=== PATIENT | female | born 1985 | race Caucasian/White ===

== ENCOUNTER 2019-11-23 15:41 | Outpatient (CLI) | payer OTHER ==
[2019-11-23] VITALS (7 sets, daily range): BP systolic 108–120; BP diastolic 58–68
[2019-11-23] MEDS ORDERED: BETAMETHASONE SOLUSPAN 6MG/ML 5ML VIAL (J0702 PER 3MG) As Ordered ONE (15:53)
[2019-11-23] MEDS ORDERED: MAGNESIUM SULFATE 4% INJ 20GM/500ML (40MG/ML) As Ordered ONE (15:53)
[2019-11-23] MEDS ORDERED: PENICILLIN G POTASSIUM 5 MU VIAL As Ordered ONE (15:53)
[2019-11-23] MEDS ORDERED: CETI10CA2 PO (16:04)
[2019-11-23] MEDS ORDERED: PRENTAB9 PO (16:04)
[2019-11-23] MEDS ORDERED: ACET650T15 PO (16:04)
[2019-11-23 16:21] LABS: BASO # 0.1 10^3/uL (0.0-0.2); BASO % 0.3 % (0.0-1.0); EOS # 0.1 10^3/uL (0.0-0.5); EOS % 0.4 % (0.0-3.0); HEMATOCRIT 44.3 % (36.0-47.0); HEMOGLOBIN 15.3 g/dl (12.0-15.5); LYMPH # 1.9 10^3/uL (1.5-5.0); LYMPH % 11.2 % (24.0-44.0); MEAN CORPUSCULAR HEMOGLOBIN 31.9 pg (27.0-33.0); MEAN CORPUSCULAR HGB CONC 34.5 g/dl (32.0-36.5); MEAN CORPUSCULAR VOLUME 92.3 fl (80.0-96.0); MONO # 0.6 10^3/uL (0.0-0.8); MONO % 3.6 % (0.0-5.0); NEUTROPHILS # 14.2 10^3/uL (1.5-8.5); NEUTROPHILS % 83.6 % (36.0-66.0); PLATELET COUNT, AUTOMATED 378 10^3/uL (150-450)
--- NOTE | 2019-11-23 16:42 | IPNPDOC ---
Obstetrical Progress Note Date of Service Nov 23, 2019 Subjective 34yo at 25+0wks by LMP of [id number] c/w 11w1d U/S on [id number] presented to OB clinic for c/o pelvic pressure and pinkish vaginal discharge that started last night and had progressed throughout the day to now bright red streaks in mucus when wiping after using the bathroom. She reports intermittent cramping pelvic pain stating her belly feels tight. Denies LOF or DFM. Last intercourse within 48hrs. She reports an uncomplicated course thus far. PMHx: GERD PSHx: Cervical myomectomy w/ D&C , T&A, [place] teeth ALL: NKDA Meds: PNV, zyrtec SHx: denies tobacco, ETOH, illicit drugs, reports feeling safe in the home FMHx: Pgreat aunts x2 - muscular dystrophy M: endometriosis, diverticulosis MGM: lung cancer, CAD MGF: gastric cancer, CAD, CHF, skin cancer [employer] Hx: regular menses monthly, no h/o STIs, no h/o abnml pap with last pap normal Objective BP: 125/7 HR: 83 Resp: 20 T: 99.4 Ht: 63 inches Weight: 132.8lbs NST appropriate for gestational age [place]: uterine irritability with irregular ctx's (resolved after starting Magnesium therapy) Assessment Heart Rate (FHR): 150 Variability: Moderate Accelerations: Positive Decelerations: None Heart Rate Tracing: Category I Tocometer Contractions: Yes Frequency: irregular Duration: less than 60 seconds Strength: palpated as mild/moderate Sterile Vaginal Examination Dilation: 3 cm (Speculum exam demonstrated cervical dilation to 3/80/-2 with membranes intact. No digital exam was performed due to gestational age. ) Effacement (%): 90% Station: -2 Cervical Consistency: Soft Cervical Position: Middle Postion/Presentation: Cephalic presentation (Bedside TAUS: cephalic presentation, anterior placenta, MVP 4.8cm, +FM seen, +FCA at 150bpm, U-shaped cervical funneling seen with 2cm dilation on ultrasound, did not attempt dynamic changes) Assessment and Plan Age: 34 : 1 EGA at Admission: 25 Status: Reassuring Group B Streptococcus: Unknown Anticipate: Other (transfer of care to [facility] for higher level of inpatient care and NICU availability) Additional Comments 34yo at 25+0wks in labor. Patient needing transfer for higher level of care for NICU availability and M consultation with inpatient monitoring. Opositive blood type. NST appropriate for gestational age. Patient reported improvement in pelvic pressure and cramping pain as well as tocometry showed resolution of ctx's and uterine irritability after starting magnesium bolus, no other tocolytics indicated. -Betamethasone 12mg IM given -Magnesium 6gm bolus, 2gm maintenance IV -Penicillin G 5U IV -LR at 75ml/hr -Ward catheter for close monitoring of I/Os and for bedrest only status -Clears as tolerated -GBS collected -CBC, UA, urine culture obtained -Bedrest privileges Code: Full Dr. Delgado accepting physician at [facility]. Patient in stable condition at time of transfer. Patient to be transferred via ground EMS. Approximately 45 minutes spent counseling patient and coordinating care. HERNÁN STRONG DO Nov 23, 2019 16:42
== END 2019-11-23 17:43 | disposition other institution (70) ==
LOC: M LDO 15:41
DX: O60.02 Preterm labor without delivery, second trimester (principal); Z3A.25 25 weeks gestation of pregnancy
CPT/HCPCS: 76815; 85025; 87081; 96372; G0378; G0463; J0702; J3475

== ENCOUNTER 2019-12-15 11:58 | Observation (INO) | payer OTHER ==
[2019-12-15] VITALS (8 sets, daily range): BP systolic 101–125; BP diastolic 56–76
[~2019-12-15] VITALS: Ht 160 cm; Wt 57.7 kg
[~2019-12-15 11:58] MED LIST: ACET650T15 PO; CETI10CA2 PO; PRENTAB9 PO
[2019-12-15] MEDS ORDERED: IBUP-1022 PO (12:06)
[2019-12-15] MEDS ORDERED: NS 1,000 ML IV ONE ×2 (12:30→14:30)
[2019-12-15] MEDS ORDERED: ISOVUE-370 76% 100ML VIAL As Ordered ONE (12:44)
[2019-12-15 12:51] LABS: BASO % 0.3 % (0.0-1.0); EOS # 0.2 10^3/uL (0.0-0.5); HEMATOCRIT 41.7 % (36.0-47.0); HEMOGLOBIN 13.7 g/dl (12.0-15.5); LYMPH % 16.7 % (24.0-44.0); MEAN CORPUSCULAR HEMOGLOBIN 30.3 pg (27.0-33.0); MEAN CORPUSCULAR HGB CONC 32.9 g/dl (32.0-36.5); MEAN CORPUSCULAR VOLUME 92.3 fl (80.0-96.0); MONO # 0.4 10^3/uL (0.0-0.8); MONO % 3.6 % (0.0-5.0); NEUTROPHILS # 9.1 10^3/uL (1.5-8.5); NEUTROPHILS % 76.9 % (36.0-66.0); PLATELET COUNT, AUTOMATED 479 10^3/uL (150-450); RED BLOOD COUNT 4.52 10^6/uL (4.00-5.40); WHITE BLOOD COUNT 11.8 10^3/uL (4.0-10.0)
[2019-12-15 13:08] LABS: BILIRUBIN, URINE MANUAL OBSCURED (NEGATIVE); GLUCOSE, URINE (UA) MANUAL OBSCURED mg/dL (NEGATIVE); KETONE, URINE MANUAL OBSCURED mg/dL (NEGATIVE); UROBILINOGEN, URINE MANUAL OBSCURED mg/dl (NORMAL)
[2019-12-15 13:10] LABS: BACTERIA, URINE NONE SEEN; HYALINE CAST, URINE NONE SEEN /lpf (0-1); RBC, URINE TNTC /hpf (0-3); SQUAMOUS EPITHELIAL CELL URINE NONE SEEN /hpf (SMALL AMT)
[2019-12-15 13:14] LABS: ALBUMIN 3.7 GM/DL (3.2-5.2); BILIRUBIN,DIRECT 0.1 MG/DL (0.0-0.2); BILIRUBIN,TOTAL 0.2 MG/DL (0.2-1.0); TOTAL PROTEIN 7.7 GM/DL (6.4-8.2)
[2019-12-15 13:51] LABS: INR 0.97; PARTIAL THROMBOPLASTIN TIME 27.8 SECONDS (25.0-38.4); PROTHROMBIN TIME 13.1 SECONDS (11.8-14.0)
--- NOTE | 2019-12-15 14:10 | REPVR ---
PROCEDURE INFORMATION: Exam: CT Abdomen And Pelvis With Contrast Exam date and time: 12/15/2019 1:25 PM Age: 34 years old Clinical indication: Abdominal pain; Generalized; Additional info: Abdominal tenderness, post . Increased vaginal bleeding. TECHNIQUE: Imaging protocol: Computed tomography of the abdomen and pelvis with intravenous contrast. Radiation optimization: All CT scans at this facility use at least one of these dose optimization techniques: automated exposure control; mA and/or kV adjustment per patient size (includes targeted exams where dose is matched to clinical indication); or iterative reconstruction. Contrast material: ISOVUE 370; Contrast volume: 100 ml; Contrast route: INTRAVENOUS (IV); COMPARISON: No relevant prior studies available. FINDINGS: Lungs: The visualized lung bases are unremarkable. Liver: A left hepatic 0.4 cm focal hypoattenuating lesion is too small to characterize, probably a cyst. Gallbladder and bile ducts: The gallbladder is unremarkable. No intrahepatic or extrahepatic bile duct dilation. Pancreas: Pancreas is unremarkable. Spleen: No splenomegaly. Splenic calcifications present consistent with remote granulomatous disease. Adrenals: Adrenal glands are unremarkable. Kidneys and ureters: The kidneys are unremarkable. No abnormal ureteral dilation. Stomach and bowel: The stomach is unremarkable. No evidence of colonic inflammation or obstruction. No evidence of small bowel inflammation or obstruction. Appendix: The appendix is not identified. Intraperitoneal space: No pneumoperitoneum. Small intermediate attenuation fluid present immediately anterior to the uterine body, underlying the region of the anterior abdominal wall Caesarean section surgical incision, consistent with small intraperitoneal hemorrhage. Vasculature: Circumaortic left renal vein present, an anatomic variant. No abdominal aortic aneurysm. Lymph nodes: No enlarged lymph nodes. Bladder: Urinary bladder is unremarkable. Reproductive: The uterus is diffusely enlarged consistent with recent state. Approximately 6.1 x 4 x 4 cm heterogeneous, intermediate and high attenuation, material is present within the uterus at the endometrial cavity. Among this material there is some serpiginous high attenuation material that has attenuation equivalent to that of the arteries suspicious for active arterial extravasation within the uterus/endometrial cavity. No adnexal mass. Bones/joints: No acute osseous abnormality. Soft tissues: Very small low-attenuation fluid (1.8 x 0.7 x 1.5 cm) within the anterior lower abdominal wall subcutaneous fat at the site of the Caesarean section surgical incision. IMPRESSION: 1. Moderate heterogeneous material within the endometrial cavity. This is suspicious for a hematoma and there is suspected active arterial hemorrhage within this hematoma. A uterine arteriovenous malformation (or uterine arteriovenous fistula) is not excluded. Retained products of conception or infected material (endometritis) are also in the differential diagnosis and clinical correlation is needed. 2. Small intraperitoneal hemorrhage anterior to the uterine body underlying the Caesarean section surgical incision. 3. Very small fluid collection within the anterior abdominal wall at the Caesarean section incision, probably representing a seroma or hematoma. An infected fluid collection is not excluded. Clinical correlation is needed. COMMENTS: THIS REPORT CONTAINS FINDINGS THAT MAY BE CRITICAL TO PATIENT CARE. The exam findings were verbally communicated by Dr. Toni Silva to Dr. Ernesto Multani via telephone conference at 2:04 PM EDT on 12/15/2019. The findings were acknowledged and understood. Electronically signed by: Toni Silva On 12/15/2019 14:10:24 PM
[2019-12-15 15:10] LABS: HEMATOCRIT 31.6 % (36.0-47.0); MEAN CORPUSCULAR HEMOGLOBIN 30.8 pg (27.0-33.0); MEAN CORPUSCULAR HGB CONC 32.9 g/dl (32.0-36.5); MEAN CORPUSCULAR VOLUME 93.5 fl (80.0-96.0); PLATELET COUNT, AUTOMATED 387 10^3/uL (150-450); RED BLOOD COUNT 3.38 10^6/uL (4.00-5.40); WHITE BLOOD COUNT 16.3 10^3/uL (4.0-10.0)
[2019-12-15 15:13] LABS: HEMOGLOBIN 10.4 g/dl (12.0-15.5)
[2019-12-15] MEDS ORDERED: METHYLERGONOVINE MALEATE 0.2 MG/ML VIAL (J2210) IM ONE (15:45)
[2019-12-15] MEDS: NS 1,000 ML IV SCH (16:08)
[2019-12-15] MEDS ORDERED: diphenhydrAMINE 25MG CAP PO ONE (16:15)
[2019-12-15] MEDS ORDERED: MOM 30ML SUSPENSION UDC PO PRN (16:15)
[2019-12-15] MEDS ORDERED: PERCOCET 5MG/325MG TAB PO PRN ×2 (16:15)
[2019-12-15] MEDS ORDERED: ACETAMINOPHEN TAB 650MG DOSE (2X325MG) PO ONE (16:15)
[2019-12-15] MEDS ORDERED: METHYLERGONOVINE MALEATE 0.2 MG TAB PO SCH (17:00)
[2019-12-15] MEDS: DOCUSATE SODIUM 100 MG CAP PO SCH (20:05)
[2019-12-15] MEDS: METHYLERGONOVINE MALEATE 0.2 MG TAB PO SCH ×2 (20:11→23:48)
[2019-12-15] MEDS: IBUPROFEN 800 MG TAB PO PRN (23:12)
[2019-12-16] MEDS: NS 1,000 ML IV SCH (00:08)
[2019-12-16 02:36] VITALS: BP 87/53
[2019-12-16] MEDS: METHYLERGONOVINE MALEATE 0.2 MG TAB PO SCH ×3 (03:54→12:04)
[2019-12-16 04:30] LABS: HEMOGLOBIN 9.5 g/dl (12.0-15.5); MEAN CORPUSCULAR HEMOGLOBIN 30.5 pg (27.0-33.0); MEAN CORPUSCULAR HGB CONC 32.8 g/dl (32.0-36.5); MEAN CORPUSCULAR VOLUME 93.2 fl (80.0-96.0); RED BLOOD COUNT 3.11 10^6/uL (4.00-5.40); WHITE BLOOD COUNT 8.7 10^3/uL (4.0-10.0)
[2019-12-16 04:33] LABS: PLATELET COUNT, AUTOMATED 261 10^3/uL (150-450)
[2019-12-16 06:04] VITALS: BP 99/56
[2019-12-16] MEDS: IBUPROFEN 800 MG TAB PO PRN (08:23)
[2019-12-16] MEDS: DOCUSATE SODIUM 100 MG CAP PO SCH (09:00)
--- NOTE | 2019-12-18 09:55 | HPEPDOC ---
General Date of Admission Dec 15, 2019 at 16:08 Date of Service: Dec 15, 2019 Attending Physician: ROSMERY REYNOSO MD. Chief Complaint The patient is a 34-year-old female admitted with a reason for visit of Subinvolution Of Uterus. Mrs. Canales is a 34-year-old 1 para 1 who presents 15 days postop from a section. She was seen in November 21 [facility] for labor at 26 weeks was transferred to [facility] where she underwent a section 2 days later for breech presentation. She reports doing well. She was discharged home after 3 days and had been feeling fairly well until dated of presentation to ED. She reported started to have some vaginal bleeding passing large clots and presented to emergency room for evaluation Source: Patient History of Present Illness Mrs. Canales is a 34-year-old 1 para 1 who presents 15 days postop from a section. She was seen in November 21 [facility] for labor at 26 weeks was transferred to [facility] where she underwent a section 2 days later for breech presentation. She reports doing well. She was discharged home after 3 days and had been feeling fairly well until dated of presentation to ED. She reported started to have some vaginal bleeding passing large clots and presented to emergency room for evaluation Home Medications Scheduled Cetirizine HCl (ZyrTEC) 10 Mg Capsule, 10 MG PO QHS, (Reported) No.137/Iron/Folic Acd ( Vitamin Tablet) 1 Each Tablet, 1 TAB PO QHS, (Reported) Scheduled PRN Ibuprofen (Ibuprofen) 600 Mg Tablet, 600 MG PO Q6H PRN for PAIN, (Reported) Allergies Coded Allergies: No Known Allergies (Unverified , 11/23/19) Past Medical History Medical History None Surgical History 1. section 2. 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 A-FIB/CHADSVASC A-FIB History Current/History of A-Fib/PAF?: No Current PO Anticoag Therapy: No Age/Risk Factor Scoring CHADSVASC: CHADSVASC Response (Comments) Value Age Risk Factor Age < 65 years old 0 Total 0 Review of Systems Genitourinary: Reports: Dysuria, Frequency, Incontinence, Hematuria, Retention, Other Symptoms (heavy vaginal bleeding) Physical Examination Telemetry: Positive: No significant arrhythmia Other physical findings Vaginal exam large amount of blood clots removed from the vaginal vault no active bleeding Vital Signs Vital Signs Date Time Temp Pulse Resp B/P (MAP) Pulse Ox O2 Delivery O2 Flow Rate FiO2 12/15/19 17:20 99.1 102 18 125/76 99 Room Air Laboratory Data Labs 24H Laboratory Tests 2 12/15/19 12:27: Immature Granulocyte % (Auto) 0.5, Neutrophils (%) (Auto) 76.9H, Lymphocytes (%) (Auto) 16.7L, Monocytes (%) (Auto) 3.6, Eosinophils (%) (Auto) 2.0, Basophils (%) (Auto) 0.3, Neutrophils # (Auto) 9.1H, Lymphocytes # (Auto) 2.0, Monocytes # (Auto) 0.4, Eosinophils # (Auto) 0.2, Basophils # (Auto) 0.0, Nucleated Red Blood Cells % (auto) 0.0, Prothrombin Time 13.1, Prothromb Time International Ratio 0.97, Activated Partial Thromboplast Time 27.8, Total Bilirubin 0.2, Direct Bilirubin 0.1, Aspartate Amino Transf (AST/SGOT) 24, Alanine Aminot ransferase (ALT/SGPT) 33, Alkaline Phosphatase 100, Total Protein 7.7, Albumin 3.7, Albumin/Globulin Ratio 0.9L, Lipase 182 12/15/19 12:41: Urine Color (RUMA) REDH, Urine Appearance (RUMA) CLOUDYH, Urine pH (RUMA) OBSCUREDH, Urine Specific [place] (RUMA) 1.005, Urine Protein 3+H, Bedside Urine Glucose (UA) OBSCUREDH, Bedside Urine Ketones (LAB) OBSCUREDH, Bedside Urine Blood POSITIVEH, Bedside Urine Nitrite (LAB) OBSCUREDH, Bedside Urine Bilirubin (LAB) OBSCUREDH, Bedside Urine Urobilinogen (LAB) OBSCUREDH, Bedside Urine Leukocyte Esterase (L POSITIVEH, Urine Sediment Examination PERFORMED, Urine RBC TNTCH, Urine WBC 1-3, Urine Squamous Epithelial Cells NONE SEEN, Urine Bacteria NONE SEEN, Urine Hyaline Casts NONE SEEN 12/15/19 12:53: POC Glucose (Misc Panel) 88, POC Sodium (Misc Panel) 144, POC Potassium (Misc Panel) 3.5, POC Chloride (Misc Panel) 106, POC Total CO2 (Misc Panel) 25.0, POC Blood Urea Nitrogen (Misc Panel 14, POC Ionized Calcium (Misc Panel) 4.9, POC Creatinine (Misc Panel) 0.6, POC Hematocrit (Misc Panel) 42.0 12/15/19 14:45: Nucleated Red Blood Cells % (auto) 0.0 CBC/BMP Laboratory Tests 12/15/19 12:27 12/15/19 14:45 Microbiology Microbiology 12/15/19 Urine Culture, Received Pending Assessment/Plan 34-year-old 1 para 1 status post uncomplicated section with subinvolution of the uterus Currently stable plan to transfuse 2 units of packed red blood cells for anemia Start her Methergine series Will observe overnight Plan / VTE VTE Prophylaxis Ordered?: No ROSMERY REYNOSO MD. Dec 15, 2019 17:40
--- NOTE | 2020-02-08 22:25 | DS.PDOC ---
Discharge Summary General Date of Admission Dec 15, 2019 at 16:08 Date of Discharge 12/16/2019 Attending Physician: ROSMERY REYNOSO MD. Discharge Summary PROCEDURES PERFORMED DURING STAY: Blood transfusion. ADMITTING DIAGNOSES: 1. Subinvolution of uterus, . DISCHARGE DIAGNOSES: 1. Subinvolution of uterus, . COMPLICATIONS/CHIEF COMPLAINT: Subinvolution Of Uterus. HISTORY OF PRESENT ILLNESS: This patient is a 34-year-old female was admitted for subinvolution of the uterus. She presented 15 days postop from section. This was November 21. She was doing well up until dated of presentation when she started to have heavy vaginal bleeding passing large clots. She was seen in emergency room was found to be symptomatic anemia and was transfuse 2 units of packed red blood cells. She did well after transfusion and was discharged home in stable condition. HOSPITAL COURSE: Uncomplicated. DISCHARGE MEDICATIONS: Please see below. ALLERGIES: Please see below. PHYSICAL EXAMINATION ON DISCHARGE: VITAL SIGNS: Please see below. GENERAL: Well-appearing no acute distress ABDOMINAL EXAMINATION: Normal EXTREMITIES: Normal NEUROLOGICAL EXAMINATION: Grossly intact PSYCHIATRIC EXAMINATION: Appropriate LABORATORY DATA: Please see below. ACTIVITY: As tolerated. DIET: Regular diet DISCHARGE PLAN: Home DISPOSITION: Home, Self-Care. DISCHARGE INSTRUCTIONS: 1. Follow-up in 2 weeks. DISCHARGE CONDITION: Stable. Discharge Medications Scheduled Cetirizine HCl (ZyrTEC) 10 Mg Capsule, 10 MG PO QHS, (Reported) No.137/Iron/Folic Acd ( Vitamin Tablet) 1 Each Tablet, 1 TAB PO QHS, (Reported) Scheduled PRN Ibuprofen (Ibuprofen) 600 Mg Tablet, 600 MG PO Q6H PRN for PAIN, (Reported) Allergies Coded Allergies: No Known Allergies (Unverified , 11/23/19) ROSMERY REYNOSO MD. Feb 08, 2020 22:25
== END 2019-12-16 12:25 | disposition home or self-care (01) ==
LOC: EDBD 11:58 → M ED 11:58 → M ED INP 16:08 → M OBS 18:09
PROVIDERS: ADMIT Obstetrics & Gynecology; ATTEND Obstetrics & Gynecology
DX: O90.89 Other complications of the puerperium, not elsewhere classified (principal); N93.9 Abnormal uterine and vaginal bleeding, unspecified; D62 Acute posthemorrhagic anemia; Z79.899 Other long term (current) drug therapy
CPT/HCPCS: 36415; 36430; 74177; 80047; 80076; 81000; 81015; 83690; 85025; 85027; 85610; 85730; 86850; 86920; 87086; 93041; 96360; 96361; 96372; 99285; J2210; P9016; Q9967